=== PATIENT | male | born 1990 | race Caucasian/White ===

== ENCOUNTER 2024-06-29 10:16 | Emergency (ER) | payer BC ==
[2024-06-29] MEDS: Acetaminophen 500 MG Tab PO ONE (11:21)
== END 2024-06-29 11:28 | disposition home or self-care (01) ==
LOC: MW.ED 10:16
DX: J10.1 Influenza due to other identified influenza virus with other respiratory manifestations (principal); Z79.899 Other long term (current) drug therapy
CPT/HCPCS: 87428; 87651; 99283; A9270